=== PATIENT | female | born 1955 | race Caucasian/White ===

== ENCOUNTER 2017-10-09 11:34 | Day surgery (SDC) | payer MEDICARE, OTHER ==
[2017-10-05 13:47] LABS: BASOPHILS % (AUTO) 0.5 % (0-1); EOSINOPHILS # (AUTO) 0.1 X10'3 (0-0.9); EOSINOPHILS % (AUTO) 1.5 % (0-6); LYMPHOCYTES % (AUTO) 26.8 % (21-51); MEAN CORPUSCULAR HEMOGLOBIN 31.9 PG (27.0-31.0); MEAN CORPUSCULAR HGB CONC 34.2 % (33.0-36.5); MEAN CORPUSCULAR VOLUME 93.3 FL (78-98); MEAN PLATELET VOLUME 7.9 FL (7.4-10.4); MONOCYTES # (AUTO) 0.4 X10'3 (0-0.9); NEUTROPHILS # (AUTO) 4.9 X10'3 (1.8-7.7); NEUTROPHILS % (AUTO) 66.2 % (42-75); PRE OP HEMATOCRIT 44.1 % (35.0-45.0); PRE OP HEMOGLOBIN 15.1 g/dL (12.0-16.0); PRE OP PLATELET COUNT 262 X10'3 (140-440); RED BLOOD COUNT 4.73 X10'6 (4.20-5.60); RED CELL DISTRIBUTION WIDTH 13.5 % (11.5-14.5)
[2017-10-05 14:01] LABS: ALBUMIN/GLOBULIN RATIO 1.2 (1.1-1.5); ALKALINE PHOSPHATASE 83 IU/L (46-116); BLOOD UREA NITROGEN 11 MG/DL (7-18); CALCIUM 9.1 MG/DL (8.5-10.1); CHLORIDE 101 MMOL/L (99-107); PRE OP ALT 25 U/L (30-65); PRE OP ANION GAP 7 (8-16); PRE OP AST 19 U/L (10-37); PRE OP BILIRUB, TOTAL 0.6 MG/DL (0.0-1.0); PRE OP GLUCOSE 112 MG/DL (70-104); PRE OP POTASSIUM 3.7 MMOL/L (3.4-5.1); PRE OP SODIUM 141 MMOL/L (135-145); TOTAL CARBON DIOXIDE 33.2 MMOL/L (24-32); TOTAL PROTEIN 7.3 G/DL (6.4-8.2); eGFR 56 ML/MIN
[2017-10-09] VITALS (24 sets, daily range): BP systolic 131–165; BP diastolic 62–99
[~2017-10-09] VITALS: Ht 163.8 cm; Wt 65.2 kg
[~2017-10-09 11:34] MED LIST: CBD OIL PO; DULO60CA45 PO; FAMO-128 PO; GENTAMICIN IV SCH; L GA1CAP PO; METH500T4 PO; MIRA25TA PO; NORMAL SALINE IV SCH; TRAM50TA2 PO; [UNRECOGNIZED DRUG - OTHER] PO; [UNRECOGNIZED DRUG - OTHER] TOP; clindamycin-Cleocin 900mg/D5W 50 ML IV ONE; famotidine 20mg tablet PO ONE
[2017-10-09] MEDS ORDERED: LIDOcaine 1% (10mg/ml) 2ml vial ONE (11:42)
[2017-10-09] MEDS: ringers solution, lacted 1,000 ML IV SCH ×5 (12:08→22:49)
[2017-10-09] MEDS ORDERED: ceFAZolin 1000mg inj ONE (12:12)
[2017-10-09] MEDS ORDERED: vasoPRESSIN 20 units/ml inj. ONE (12:12)
[2017-10-09] MEDS ORDERED: sevoflurane 250ml liquid IH ONE (13:25)
[2017-10-09] MEDS ORDERED: fluconazole in saline, iso-osm 100mg/50ml Premix IV ONE (13:25)
[2017-10-09] MEDS ORDERED: dexamethasone sod phosphate 10mg/ml inj ONE (13:25)
[2017-10-09] MEDS ORDERED: midazolam 2 mg/2 ml injection ONE ×2 (13:34→13:38)
[2017-10-09] MEDS ORDERED: morphine 10mg/ml inj. ONE (13:38)
[2017-10-09] MEDS ORDERED: propofol inj 20 ML IV ONE (13:45)
[2017-10-09] MEDS ORDERED: LIDOcaine 2% (20mg/ml) 5ml vial ONE (13:45)
[2017-10-09] MEDS ORDERED: ondansetron/PF 4mg/2ml inj ONE (13:45)
[2017-10-09] MEDS ORDERED: ringers solution, lacted 1,000 ML IV SCH (13:59)
[2017-10-09] MEDS ORDERED: hydrALAZINE 20mg/ml inj. IV PRN (14:00)
[2017-10-09] MEDS ORDERED: ondansetron/PF 4mg/2ml inj IV PRN ×2 (14:00→14:40)
[2017-10-09] MEDS ORDERED: fentaNYL/PF 50MCG/1 ML 2ML syringe IV PRN ×2 (14:00)
[2017-10-09] MEDS ORDERED: labetalol 20mg/4ml (5mg/ml) syringe IV PRN (14:00)
[2017-10-09] MEDS ORDERED: morphine 4 MG/ML inj SYRINge IV PRN ×2 (14:00)
[2017-10-09] MEDS ORDERED: clindamycin phosphate 40gm vag cream ONE (14:27)
[2017-10-09] MEDS ORDERED: magnesium hydroxide 30ml (MOM) UD suspension PO PRN (14:40)
[2017-10-09] MEDS ORDERED: CADD PCA waste documentation MC PRN (14:40)
[2017-10-09] MEDS ORDERED: naloxone 0.4 mg/ml inj IV PRN (14:40)
[2017-10-09] MEDS ORDERED: diphenhydrAMINE 50 mg/ml inj IV PRN (14:40)
[2017-10-09] MEDS ORDERED: temazepam 15mg capsule PO PRN (14:40)
[2017-10-09] MEDS ORDERED: ketorolac tromethamine 15mg/ml inj. IV PRN (14:40)
[2017-10-09] MEDS ORDERED: HYDROcodone/acetaminophen 5mg/325mg tablet PO PRN ×2 (14:40)
[2017-10-09] MEDS ORDERED: normal saline 500ml IV soln 500 ML IV PRN (14:40)
[2017-10-09] MEDS: HYDROmorphone/NS 1 mg/ml CADD 50 ML IV SCH ×5 (15:09→22:51)
[2017-10-09] MEDS: simethicone 80mg chew tab PO SCH (18:33)
[2017-10-09] MEDS: docusate sod 100mg capsule PO SCH (19:18)
[2017-10-10] VITALS: BP 146/71
[2017-10-10] MEDS: HYDROmorphone/NS 1 mg/ml CADD 50 ML IV SCH ×3 (01:00→05:00)
[2017-10-10 04:15] VITALS: BP 148/79
[2017-10-10 05:02] LABS: BASOPHILS % (AUTO) 0.2 % (0-1); EOSINOPHILS % (AUTO) 0 % (0-6); HEMATOCRIT 39.5 % (35.0-45.0); HEMOGLOBIN 13.4 g/dl (12.0-16.0); LYMPHOCYTES # (AUTO) 0.9 X10'3 (1.1-4.8); LYMPHOCYTES % (AUTO) 9.2 % (21-51); MEAN CORPUSCULAR HEMOGLOBIN 31.7 PG (27.0-31.0); MEAN CORPUSCULAR VOLUME 93.3 FL (78-98); MEAN PLATELET VOLUME 8.5 FL (7.4-10.4); MONOCYTES # (AUTO) 0.3 X10'3 (0-0.9); MONOCYTES % (AUTO) 2.7 % (2-12); NEUTROPHILS # (AUTO) 8.7 X10'3 (1.8-7.7); NEUTROPHILS % (AUTO) 87.9 % (42-75); PLATELET COUNT 256 X10'3 (140-440); RED BLOOD COUNT 4.23 X10'6 (4.20-5.60); RED CELL DISTRIBUTION WIDTH 13.3 % (11.5-14.5); WHITE BLOOD COUNT 9.9 X10'3 (4.5-11.0)
[2017-10-10] MEDS: ringers solution, lacted 1,000 ML IV SCH ×2 (05:49→05:52)
[2017-10-10] MEDS ORDERED: HYDROmorphone/NS 1 mg/ml CADD 50 ML IV SCH (06:24)
[2017-10-10 07:00] VITALS: BP 160/74
[2017-10-10] MEDS ORDERED: DULOXETINE HCL PO SCH (08:00)
[2017-10-10] MEDS ORDERED: famotidine 20mg tablet PO SCH (08:00)
[2017-10-10] MEDS ORDERED: duloxetine 30mg CAPSULE.DR PO SCH (08:00)
[2017-10-10] MEDS: simethicone 80mg chew tab PO SCH ×2 (08:33→13:25)
[2017-10-10] MEDS: docusate sod 100mg capsule PO SCH (08:33)
[2017-10-10 11:00] VITALS: BP 144/79
== END 2017-10-10 16:35 | disposition home or self-care (01) ==
LOC: PAS 11:34 → SUR 3N 14:39 → PAS 10-10 16:35
PROVIDERS: ATTEND Specialist
DX: N81.11 Cystocele, midline (principal); N39.46 Mixed incontinence; N18.3 Chronic kidney disease, stage 3 (moderate); M19.90 Unspecified osteoarthritis, unspecified site; F41.8 Other specified anxiety disorders; F32.9 Major depressive disorder, single episode, unspecified; M79.7 Fibromyalgia; R79.1 Abnormal coagulation profile; Z87.891 Personal history of nicotine dependence; Z72.89 Other problems related to lifestyle; Z88.0 Allergy status to penicillin; Z83.3 Family history of diabetes mellitus; Z90.710 Acquired absence of both cervix and uterus; Z79.891 Long term (current) use of opiate analgesic; Z79.899 Other long term (current) drug therapy; Z98.890 Other specified postprocedural states
CPT/HCPCS: 36415; 57240; 57288; 80053; 85025; 85610; 85730; 86885; 86900; 86901; A4315; A4353; A4355; C1771; J0690; J1100; J1170; J1450; J2001; J2250; J2270; J2405; J2704; J3490; J7030; J7120; 88302; A6250; A7000; J1580

== ENCOUNTER 2021-11-19 08:36 | Emergency (ER) | payer MEDICARE, OTHER ==
[~2021-11-19] VITALS: Ht 165.1 cm; Wt 59.1 kg
[~2021-11-19 08:36] MED LIST changes: -DULO60CA45 PO; +DULO60CA59 PO; -GENTAMICIN IV SCH; -NORMAL SALINE IV SCH; -clindamycin-Cleocin 900mg/D5W 50 ML IV ONE; -famotidine 20mg tablet PO ONE
[2021-11-19] MEDS ORDERED: LORazepam 1 MG tablet PO ONE (11:45)
[2021-11-19 12:31] LABS: BASOPHILS % (AUTO) 0.4 % (0-1); EOSINOPHILS % (AUTO) 0.3 % (0-6); HEMATOCRIT 41.5 % (35.0-45.0); HEMOGLOBIN 14.2 g/dl (12.0-16.0); LYMPHOCYTES # (AUTO) 1.9 X10'3 (1.1-4.8); LYMPHOCYTES % (AUTO) 17.3 % (21-51); MEAN CORPUSCULAR HEMOGLOBIN 31.7 PG (27.0-31.0); MEAN CORPUSCULAR HGB CONC 34.3 g/dL (33.0-36.5); MEAN CORPUSCULAR VOLUME 92.5 FL (78-98); MEAN PLATELET VOLUME 7.8 FL (7.4-10.4); MONOCYTES # (AUTO) 0.5 X10'3 (0-0.9); MONOCYTES % (AUTO) 4.5 % (2-12); NEUTROPHILS # (AUTO) 8.7 X10'3 (1.8-7.7); NEUTROPHILS % (AUTO) 77.5 % (42-75); PLATELET COUNT 300 X10'3 (140-440); RED BLOOD COUNT 4.49 X10'6 (4.20-5.60); RED CELL DISTRIBUTION WIDTH 13.2 % (11.5-14.5); WHITE BLOOD COUNT 11.2 X10'3 (4.5-11.0)
[2021-11-19 12:44] LABS: ALANINE AMINOTRANSFERASE 21 U/L (12-78); ALBUMIN 3.8 G/DL (3.4-5.0); ALBUMIN/GLOBULIN RATIO 1.2 (1.1-1.5); ALKALINE PHOSPHATASE 79 IU/L (46-116); ANION GAP 7 (8-16); ASPARTATE AMINO TRANSFERASE 13 U/L (10-37); BILIRUBIN,TOTAL 0.6 MG/DL (0.1-1.0); BLOOD UREA NITROGEN 12 MG/DL (7-18); CALCIUM 9.2 MG/DL (8.5-10.1); CHLORIDE 101 MMOL/L (99-107); CREATININE 0.75 MG/DL (0.40-0.90); GLUCOSE 106 MG/DL (70-104); POTASSIUM 4.4 MMOL/L (3.5-5.1); SODIUM 139 MMOL/L (135-145); TOTAL CARBON DIOXIDE 31.3 MMOL/L (24-32); TOTAL PROTEIN 7.1 G/DL (6.4-8.2); eGFR 77 ML/MIN
[2021-11-19] MEDS ORDERED: nitroGLYCERIN 0.2mg/hour patch TD ONE (13:20)
[2021-11-19] MEDS ORDERED: aspirin 81mg tab.chew PO ONE (13:20)
--- NOTE | 2021-11-19 14:38 | NUR ---
at 1447 pt came over from fast track. Pt in no apparent distress.
[2021-11-19] MEDS ORDERED: LORA-269 PO (16:41)
[2021-11-19 16:52] VITALS: BP 126/74
== END 2021-11-19 16:57 | disposition home or self-care (01) ==
LOC: ER 08:36
DX: R00.2 Palpitations (principal); F41.9 Anxiety disorder, unspecified; K21.9 Gastro-esophageal reflux disease without esophagitis; Z88.0 Allergy status to penicillin
CPT/HCPCS: 36415; 80053; 84443; 84484; 85025; 93005; 99285